=== PATIENT | female | born 1975 | race Caucasian/White ===

== ENCOUNTER 2018-06-19 13:19 | Emergency (ER) | payer MEDICAID ==
[2018-06-19 13:44] VITALS: TEMP 99
--- NOTE | 2018-06-19 14:17 | ED PDOC ---
Arrival/HPI - General Chief Complaint: Lower Extremity Problem/Injury Time Seen by Provider: 06/19/18 14:17 Historian: Patient - History of Present Illness Narrative History of Present Illness (Text): 06/19/18 14:17 This 43 yo female with pmh Diabetes, allergy to Compazine, presents to this emergency department complaining of right posterior knee pain x 2 weeks. Patient noted a road trip to [place] x 4 weeks ago. Patient denies leg swelling , ankle pain, hip pain, skin rash, recent trauma, recent surgical procedure, blood disorder, calf pain, shortness of breath, chest pain, dizziness, or CMS Time/Duration: Other (see hpi) Quality: Aching Context: Home Past Medical History - Provider Review Nursing Documentation Reviewed: Yes - Infectious Disease Hx of Infectious Diseases: None - Reproductive Menopause: No - Cardiac Hx Cardiac Disorders: No - Pulmonary Hx Respiratory Disorders: No - Endocrine/Metabolic Hx Diabetes Mellitus Type 2: Yes - Integumentary Hx Dermatological Disorder: No - Musculoskeletal/Rheumatological Hx Musculoskeletal Disorders: No - Psychiatric Hx Substance Use: No - Anesthesia Hx Anesthesia: No Family/Social History - Physician Review Nursing Documentation Reviewed: Yes Family/Social History: Other (noncontributory) Smoking Status: Unknown If Ever Smoked Hx Alcohol Use: No Hx Substance Use: No Allergies/Home Meds Allergies/Adverse Reactions: Allergies prochlorperazine [From Compazine] Allergy (Verified 06/19/18 14:24) RASH Review of Systems - Review of Systems Constitutional: Normal. absent: Fatigue, Weight Change, Fevers Eyes: Normal ENT: Normal Respiratory: Normal. absent: SOB, Cough Cardiovascular: Normal. absent: Chest Pain, Palpitations Gastrointestinal: Normal. absent: Abdominal Pain, Nausea, Vomiting Genitourinary Female: Normal. absent: Dysuria, Frequency, Hematuria Musculoskeletal: Other (see hpi) Skin: Normal Neurological: Normal Endocrine: Normal Hemo/Lymphatic: Normal Psychiatric: Normal Physical Exam Vital Signs Temp Pulse Resp BP Pulse Ox 06/19/18 17:32 84 17 142/82 98 06/19/18 13:38 99 F 92 H 16 148/88 99 Temperature: Afebrile Blood Pressure: Normal Pulse: Regular Respiratory Rate: Normal Appearance: Positive for: Well-Appearing, Non-Toxic, Comfortable Pain Distress: None Mental Status: Positive for: Alert and Oriented X 3 - Systems Exam Head: Present: Atraumatic, Normocephalic Pupils: Present: PERRL Extroacular Muscles: Present: EOMI Conjunctiva: Present: Normal Mouth: Present: Moist Mucous Membranes Neck: Present: Normal Range of Motion Respiratory/Chest: Present: Clear to Auscultation, Good Air Exchange. No: Respiratory Distress, Accessory Muscle Use Cardiovascular: Present: Regular Rate and Rhythm, Normal S1, S2. No: Murmurs Abdomen: No: Tenderness, Distention, Peritoneal Signs Back: Present: Normal Inspection Upper Extremity: Present: Normal Inspection. No: Cyanosis, Edema Lower Extremity: Present: Normal Inspection, NORMAL PULSES, Normal ROM, Tenderness ((+) mild right posterior lateral knee tenderness. No deformity, knee swelling, erythema, or ecchymosis. Patient is able to bend right knee for at least 90 degrees. Pedis pulse is +2 b/l), Neurovascularly Intact, Capillary Refill < 2 s. No: Edema, CALF TENDERNESS, Cyanosis, Corin's Sign, Swelling, Erythema, Temperature Abnormalties Neurological: Present: GCS=15, CN II-XII Intact, Speech Normal, Motor Func Grossly Intact, Normal Sensory Function, Normal Cerebellar Funct, Gait Normal, Memory Normal Skin: Present: Warm, Dry, Normal Color. No: Rashes Psychiatric: Present: Alert, Oriented x 3, Normal Insight, Normal Concentration Medical Decision Making ED Course and Treatment: 06/19/18 18:01 Patient came complaining of right posterior knee pain x 2 weeks. Patient denies trauma, skin erythema, ecchymosis. I reviewed with patient ultrasound report form lower extremity, and knee x-rays. They were both negative. Patient stated pain has improved. I offered patient crutches, but she prefers a cane. I ordered knee immobilizer, and I told patient to remove it at bedtime. I recommended patient to have a repeat ultrasound of her lower leg in 7 days if pain persist or worsen. Re-evaluation Time: 18:13 Reassessment Condition: Re-examined, Improved - RAD Interpretation Narrative RAD Interpretations (Text): 06/19/18 17:38 ROCEDURE: Right lower extremity venous US HISTORY: Leg pain and swelling. Evaluate for DVT. PHYSICIAN(S): Hamzah Desai M.D. TECHNIQUE: Duplex sonography and color-flow Doppler with graded compression were used to evaluate the deep venous system of the right lower extremity. FINDINGS: The visualized deep venous system of the right lower extremity is sonographically normal and compressible. Normal waveforms and augmentation are seen. There is no sonographic evidence for deep venous thrombosis in the visualized segments of the right lower extremity. IMPRESSION: 1. No sonographic evidence for deep venous thrombosis in the visualized segments of the right lower extremity. 06/19/18 17:39 PROCEDURE: Right Knee Radiographs. HISTORY: Posttraumatic pain, twisted ankle COMPARISON: None. FINDINGS: BONES: No acute fracture. Proliferative hypertrophic changes emanating from the femoral condyle and tibial plateau regions. JOINTS: Degenerative changes limited to the medial condyles joint space. JOINT EFFUSION: None. OTHER FINDINGS: None. IMPRESSION: No acute findings related to/accounting for the clinical presentation. Additional benign and/or incidental findings described above. Radiology Orders: 06/19/18 14:25 KNEE RIGHT 2 VIEWS (AP & LAT) [RAD] Stat DUPLEX LOWER EXTRM VEIN RIGHT [US] Stat - Medication Orders Current Medication Orders: Discontinued Medications Ketorolac Tromethamine (Toradol) 30 mg IM STAT STA Stop: 06/19/18 14:27 Last Admin: 06/19/18 15:02 Dose: 30 mg MAR Pain Assessment Document 06/19/18 15:02 SF (Rec: 06/19/18 15:02 SF [id number] Pain Reassessment Is this a pain reassessment? Yes Sleep Is patient sleeping during reassessment? No Presence of Pain Presence of Pain Yes IM Administration Charges Document 06/19/18 15:02 SF (Rec: 06/19/18 15:02 SF [id number] Injection Site MAR Injection Site Left Deltoid Charges for Administration # of IM Administrations 1 Disposition/Present on Arrival - Present on Arrival Any Indicators Present on Arrival: No History of DVT/PE: No History of Uncontrolled Diabetes: No Urinary Catheter: No History of Decub. Ulcer: No History Surgical Site Infection Following: None - Disposition Have Diagnosis and Disposition been Completed?: Yes Diagnosis: Knee pain, Osteoarthritis Disposition: HOME/ ROUTINE Disposition Time: 18:17 Patient Plan: Discharge Condition: GOOD Discharge Instructions (ExitCare): Osteoarthritis (DC), Knee Pain (DC) Additional Instructions: Call private doctor for follow up visit in 1-2 days. Take medication as instructed. Remove knee immobilizer at bedtime. Keep knee elevated, rest, ice. Use cane, and return to emergency if leg pain worsen, or persist for over 7 days. or if skin becomes redness, or swelling occurs. Call orthopedist for revaluation. Prescriptions: Famotidine [Pepcid] 40 mg PO DAILY #10 tablet Naproxen 500 mg PO BID PRN #14 tablet PRN Reason: Pain, Severe (8-10) oxyCODONE/Acetaminophen [Percocet 5/325 mg Tab] 1 ea PO Q6H PRN #5 tab PRN Reason: Pain, Severe (8-10) Referrals: Patricia Barker MD [Primary Care Provider] - Follow up with primary Philippe Stover DO [Staff Provider] - Follow up with primary Forms: [facility] (Urdu), WORK NOTE
--- NOTE | 2018-06-19 17:14 | RAD ---
Date of service: 06/19/2018 PROCEDURE: Right Knee Radiographs. HISTORY: Posttraumatic pain, twisted ankle COMPARISON: None. FINDINGS: BONES: No acute fracture. Proliferative hypertrophic changes emanating from the femoral condyle and tibial plateau regions. JOINTS: Degenerative changes limited to the medial condyles joint space. JOINT EFFUSION: None. OTHER FINDINGS: None. IMPRESSION: No acute findings related to/accounting for the clinical presentation. Additional benign and/or incidental findings described above.
--- NOTE | 2018-06-19 17:24 | US ---
PROCEDURE: Right lower extremity venous US HISTORY: Leg pain and swelling. Evaluate for DVT. PHYSICIAN(S): Hamzah Desai M.D. TECHNIQUE: Duplex sonography and color-flow Doppler with graded compression were used to evaluate the deep venous system of the right lower extremity. FINDINGS: The visualized deep venous system of the right lower extremity is sonographically normal and compressible. Normal waveforms and augmentation are seen. There is no sonographic evidence for deep venous thrombosis in the visualized segments of the right lower extremity. IMPRESSION: 1. No sonographic evidence for deep venous thrombosis in the visualized segments of the right lower extremity.
[2018-06-19] MEDS ORDERED: Oxycodone/Acetaminophen 5/325 mg Tab PO STA (19:06)
[2018-06-19 20:09] VITALS: BP 135/78; PULSE 85; RESP 18; O2SAT 100
== END 2018-06-19 19:17 | disposition home or self-care (01) ==
LOC: EDBD → ED 13:19
DX: M25.561 Pain in right knee (principal); M17.11 Unilateral primary osteoarthritis, right knee
CPT/HCPCS: 73560; 81025; 93971; 96372; 99285; J1885